=== PATIENT | female | born 1950 | race Caucasian/White ===

== ENCOUNTER 2020-05-10 12:15 | Outpatient (CLI) | payer MEDICARE, OTHER, SELFPAY ==
--- NOTE | ~2020-05-10 | XR_ITS ---
EXAMINATION: XR knee LT 3V DATE: 05/10/2020 12:47 INDICATION: Left knee pain. TECHNIQUE: 3 views of left knee were obtained. COMPARISON: Left knee radiographs 07/26/2012 FINDINGS: There is varus angulation at the knee. There is lateral subluxation of patella. No fracture . There is severe osteoarthritis of medial and patellofemoral compartments and mild osteoarthritis of lateral compartment. There is a small knee joint effusion. There is a 2.9 cm loose body in the knee joint posteriorly. IMPRESSION: 1. Severe left knee osteoarthritis. 2. Small left knee joint effusion with loose body. Reviewed, dictated and finalized at location A. [employer]
== END 2020-05-10 12:16 | disposition home or self-care (01) ==
PROVIDERS: PCP Family Medicine; Visit Provider Family Medicine
DX: M17.12 Unilateral primary osteoarthritis, left knee (principal); M23.42 Loose body in knee, left knee
CPT/HCPCS: 73562

== ENCOUNTER 2020-12-08 15:36 | Outpatient (CLI) | payer MEDICARE, SELFPAY ==
--- NOTE | ~2020-12-08 | MM_ITS ---
EXAMINATION: MM screening haylee BI w brendan HISTORY: Screening mammogram TECHNIQUE: Craniocaudal and mediolateral oblique 3-D tomosynthesis images were obtained and synthetic 2-D images were generated. CAD analysis was submitted and interpreted. COMPARISON: 08/10/2017 bilateral digital screening mammogram BREAST PARENCHYMAL COMPOSITION: There are scattered areas of fibroglandular density. FINDINGS: Scattered bilateral benign calcified microhematomas. There is no evidence of suspicious mas s, calcification, or architectural distortion to suggest malignancy in either breast. There has been no suspicious interval change. IMPRESSION: 1. No mammographic evidence of malignancy. 2. Recommend routine screening mammography in one year. BI-RADS Category 2: Benign finding(s). Reviewed, dictated and finalized at location A.
== END 2020-12-08 15:37 | disposition home or self-care (01) ==
LOC: ANHIMG 15:39
PROVIDERS: PCP Family Medicine; Visit Provider Family Medicine
DX: Z12.31 Encounter for screening mammogram for malignant neoplasm of breast (principal)
CPT/HCPCS: 77063; 77067

== ENCOUNTER 2021-04-06 00:28 | Day surgery (SDC) | payer MEDICARE, SELFPAY ==
[2021-03-29 10:50] VITALS: BMI 34.1
--- NOTE | 2021-04-05 10:24 | WPDANESEPPF ---
Anes - Initial Pre Proc Eval Procedure: Operation Date: 04/06/21 08:30 Proposed Procedures p Esophagogastroduodenoscopy & Screening Colonoscopy - Willy Bundy MD Date/Time: 04/05/21 10:24 Surgeon: Willy Bundy MD Pre Op Diagnosis: neoplasm screening, dysphagia Patient Data Age: 70 Gender: F Height: 1.55 m Weight: 82 kg Allergies Allergy/AdvReac Type Severity Reaction Status Date / Time bee pollen Allergy Mild hives and Verified 04/06/21 07:44 shortness of breath Home Medications Medication Instructions Recorded Confirmed Type duloxetine 60 mg capsule,delayed 60 mg PO DAILY #90 cap 03/08/21 03/29/21 Rx release esomeprazole magnesium 40 mg 40 mg PO DAILY #90 cap 03/08/21 03/29/21 Rx capsule,delayed release gabapentin 300 mg capsule 900 mg PO TID #270 cap 03/08/21 03/29/21 Rx losartan 50 mg tablet 50 mg PO DAILY #90 tablet 03/08/21 03/29/21 Rx rosuvastatin 5 mg tablet 5 mg PO DAILY #30 tablet 03/14/21 03/29/21 Rx sodium,potassium,mag sulfates 17.5 See Rx Instructions PO .COMPLEX 03/14/21 Rx gram-3.13 gram-1.6 gram oral soln #354 ml cephalexin 500 mg capsule 500 mg PO DAILY #90 cap 03/17/21 03/29/21 Rx warfarin 5 mg PO 2XW 03/29/21 03/29/21 History warfarin 6 mg PO 5XW 03/29/21 03/29/21 History cyclobenzaprine 5 mg tablet 5 mg PO TID PRN #90 tablet 04/02/21 Rx Patient hx anesthesia problems: none Family hx anesthesia problems: none Results Review: All pre-operative results and documents have been reviewed as part of the pre-operative evaluation. [facility] Past Medical History Medical History (Updated 04/06/21 @ 08:07 by Jamin Lindsay DO) Acute embolism and thrombosis of unspecified deep veins of left lower extremity Arthritis Bleeding nose Blood clotting disorder Cervical disc disorder with myelopathy, unspecified cervical region Chills Claustrophobia Encounter for therapeutic drug level monitoring Fever History of DVT (deep vein thrombosis) Hx of pulmonary embolus Light headedness Neuromuscular dysfunction of bladder, unspecified Other pulmonary embolism without acute cor pulmonale Pacemaker non functional Pneumonia Presence of neurostimulator Pulmonary embolism Urinary frequency Wears glasses Surgical History Surgical History History of excision of lamina of cervical vertebra for decompression of spinal cord History of hysterectomy History of permanent cardiac pacemaker placement Family History Family History Sibling Patient's sister is in good health Mother Patient's mother is Father Patient's father is Grandparent Family history of premature coronary heart disease Other Carcinoma of colon Oral-mouth cancer Social History Social History (Updated 03/08/21 @ 13:04 by Shazia Villagomez) Social History: Smoking status: Never smoker Second hand tobacco smoke exposure: No Alcohol intake: never Substance use: never Substance use type: does not use Living arrangements: with family Gender identity (if verbalized by the patient): Female Sexual Orientation (if Verbalized by the Patient): Straight or Heterosexual Spiritual care concerns: No Anes - Eval Final PreProcedure Day of Procedure 04/05/21 10:24 Patient weight: obese Heart: regular rate and rhythm Lungs: clear to auscultation and normal air movement Airway: Mallampati scale class II Neurological: alert and oriented Last oral intake: >/= 8 hours ASA classification: III Emergent: no Anesthetic plan: proceed Anesthesia type and monitoring: general GIVS and standard monitoring Results Review: All pre-operative results and documents have been reviewed as part of the pre-operative evaluation. Informed Consent: The patient's anesthetic plan and its attendant risks and benefits were discussed wi
[2021-04-06 07:48] VITALS: BP 187/92; PULSE 83; RESP 20; TEMP 37.1; O2SAT 97
[2021-04-06] MEDS: LACTATED RINGERS 1,000 ML 150 ML IV CONT (07:59)
--- NOTE | 2021-04-06 08:41 | PM.HPGS ---
History of Present Illness History of Present Illness Consent: Risks, benefits, and alternatives have been discussed and questions answered. Patient agrees to proceed with procedure. Chief complaint: neoplasm screening, dysphagia Narrative: Nena De Santiago is a 70 year old female with gerd and intermittent dysphagia on nexium, also she is due to have another colonoscopy Review of Systems Constitutional: Constitutional: Denies headache(s) and Denies weakness Eyes: Eyes: Denies blurry vision ENT: Reports Normal hearing present, Denies headache(s) and Denies neck pain Cardiovascular: Cardiovascular: Denies chest pain and Denies dyspnea Respiratory: Respiratory: Denies dyspnea Gastrointestinal: Gastrointestinal: Reports no additional gastrointestinal complaints Genitourinary: Genitourinary: Denies dysuria Musculoskeletal: Musculoskeletal: Denies neck pain Integumentary/Breasts: Skin/Breast: Denies dry skin Neurologic: Reports Normal hearing present, Denies headache(s) and Denies weakness Psychiatric: Psychiatric: Denies anxiety Endocrine: Endocrine: Denies change in body appearance Hematologic/Lymphatic: Hematologic/Lymphatic: Denies easy bleeding Allergic/Immunologic: Allergic/Immunologic: Denies urticaria PMFSH Past Medical History Medical History (Updated 04/06/21 @ 08:07 by Jamin Lindsay DO) Acute embolism and thrombosis of unspecified deep veins of left lower extremity Arthritis Bleeding nose Blood clotting disorder Cervical disc disorder with myelopathy, unspecified cervical region Chills Claustrophobia Encounter for therapeutic drug level monitoring Fever History of DVT (deep vein thrombosis) Hx of pulmonary embolus Light headedness Neuromuscular dysfunction of bladder, unspecified Other pulmonary embolism without acute cor pulmonale Pacemaker non functional Pneumonia Presence of neurostimulator Pulmonary embolism Urinary frequency Wears glasses Surgical History Surgical History History of excision of lamina of cervical vertebra for decompression of spinal cord History of hysterectomy History of permanent cardiac pacemaker placement Family History Family History Sibling Patient's sister is in good health Mother Patient's mother is Father Patient's father is Grandparent Family history of premature coronary heart disease Other Carcinoma of colon Oral-mouth cancer Social History Social History (Updated 03/08/21 @ 13:04 by Shazia Villagomez) Social History: Smoking status: Never smoker Second hand tobacco smoke exposure: No Alcohol intake: never Substance use: never Substance use type: does not use Living arrangements: with family Gender identity (if verbalized by the patient): Female Sexual Orientation (if Verbalized by the Patient): Straight or Heterosexual Spiritual care concerns: No Meds Home Medications and Allergies Home Medications Medication Instructions Recorded Confirmed Type duloxetine 60 mg capsule,delayed 60 mg PO DAILY #90 cap 03/08/21 04/06/21 Rx release esomeprazole magnesium 40 mg 40 mg PO DAILY #90 cap 03/08/21 04/06/21 Rx capsule,delayed release gabapentin 300 mg capsule 900 mg PO TID #270 cap 03/08/21 04/06/21 Rx losartan 50 mg tablet 50 mg PO DAILY #90 tablet 03/08/21 04/06/21 Rx rosuvastatin 5 mg tablet 5 mg PO DAILY #30 tablet 03/14/21 04/06/21 Rx sodium,potassium,mag sulfates 17.5 See Rx Instructions PO .COMPLEX 03/14/21 04/06/21 Rx gram-3.13 gram-1.6 gram oral soln #354 ml cephalexin 500 mg capsule 500 mg PO DAILY #90 cap 03/17/21 04/06/21 Rx warfarin 5 mg PO 2XW 03/29/21 04/06/21 History warfarin 6 mg PO 5XW 03/29/21 04/06/21 History cyclobenzaprine 5 mg tablet 5 mg PO TID PRN #90 tablet 04/02/21 04/06/21 Rx Allergies Allergy/AdvReac Type Sever
[2021-04-06 09:37] VITALS: BP 79/42; PULSE 77; RESP 22; O2SAT 97
[2021-04-06 09:47] VITALS: BP 110/67; PULSE 67; RESP 20; O2SAT 100
[2021-04-06 09:57] VITALS: BP 117/69; PULSE 70; RESP 21; O2SAT 100
== END 2021-04-06 10:17 | disposition home or self-care (01) ==
PROVIDERS: PCP Family Medicine; Visit Provider Internal Medicine Gastroenterology
PROC: 0DJ08ZZ Inspection of Upper Intestinal Tract, Via Natural or Artificial Opening Endoscopic (ICD-10-PCS; CPT 43235; principal; 2021-04-06 08:30)
DX: Z12.11 Encounter for screening for malignant neoplasm of colon (principal); K43.9 Ventral hernia without obstruction or gangrene; R13.10 Dysphagia, unspecified; K21.00 Gastro-esophageal reflux disease with esophagitis, without bleeding; K44.9 Diaphragmatic hernia without obstruction or gangrene; K29.50 Unspecified chronic gastritis without bleeding; D68.9 Coagulation defect, unspecified; Z86.718 Personal history of other venous thrombosis and embolism; Z86.711 Personal history of pulmonary embolism; Z79.01 Long term (current) use of anticoagulants; E66.9 Obesity, unspecified; Z68.34 Body mass index [BMI] 34.0-34.9, adult
CPT/HCPCS: 43239; G0121; 88305; J2704; J7120

== ENCOUNTER 2021-04-25 08:19 | Outpatient (CLI) | payer MEDICARE, SELFPAY ==
--- NOTE | ~2021-04-25 | XR_ITS ---
EXAMINATION: XR abdomen/kub 1V INDICATION: Incomplete colonoscopy TECHNIQUE: Supine view of the abdomen is obtained. COMPARISON: None FINDINGS: Gaseous distention of the colon likely relates to incomplete colonoscopy. No free intraperi toneal gas is identified. A neurostimulator device lead enters the right pelvis. IMPRESSION: 1. Gaseous distention of the colon, likely due to incomplete colonoscopy. Reviewed, dictated and finalized at location B. NG SECRETARY
== END 2021-04-25 08:20 | disposition home or self-care (01) ==
LOC: ANHIMG 08:23
PROVIDERS: PCP Family Medicine; Visit Provider Internal Medicine Gastroenterology
DX: Z12.11 Encounter for screening for malignant neoplasm of colon (principal); K63.89 Other specified diseases of intestine
CPT/HCPCS: 74018

== ENCOUNTER 2021-04-26 09:27 | Outpatient (CLI) | payer MEDICARE, SELFPAY ==
--- NOTE | ~2021-04-26 | XR_ITS ---
BARIUM ENEMA-AIR CONTRAST INDICATION: Encounter for screening of malignant neoplasm TECHNIQUE: Examination of the colon utilizing air-contrast barium enema technique. COMPARISON: KUB dated 04/25/2021 FINDINGS: The colon was filled, distending normally. The colon is redundant. There is a large amount of gas within the proximal colon limiting evaluation of the proximal colon with barium. No extrinsic mass effect is noted. The haustral pattern appears normal. There is no evidence of polyp, stricture , extravasation, obstruction or persistent mucosal abnormality. IMPRESSION: 1:Unremarkable colon. Limited evaluation of the proximal colon. Reviewed, dictated and finalized at location A. ER PUNCH
== END 2021-04-26 09:28 | disposition home or self-care (01) ==
PROVIDERS: PCP Family Medicine; Visit Provider Internal Medicine Gastroenterology
DX: Z12.11 Encounter for screening for malignant neoplasm of colon (principal)
CPT/HCPCS: 74280

== ENCOUNTER → 2021-07-28 11:15 | Outpatient (CLI) | payer MEDICARE, SELFPAY ==
--- NOTE | ~2021-07-28 | CT_ITS ---
EXAMINATION: CT abdomen wo con DATE: 07/28/2021 11:29 INDICATION: Umbilical hernia without obstruction or gangrene TECHNIQUE: Computed tomography (CT) of the abdomen was performed without intravenous contrast. Automa holly exposure control and iterative reconstruction technique were employed. Exam dose: 602.27 mGy-cm total exam DLP. COMPARISON: None. FINDINGS: There is mild discoid atelectasis or more likely scarring in the posterior basilar right lo wer lobe. The lung bases are clear of infiltrate or consolidation. Normal heart size. Right atrial an d right ventricular pacemaker leads are noted. No pericardial or pleural effusion. Small sliding hiatal hernia. The liver, gallbladder, bile ducts, spleen, pancreas, pancreatic duct, and adrenal glands and kidneys are unremarkable. No renal calculus or hydronephrosis. Normal caliber of the abdominal aorta. No intraperitoneal or retroperitoneal mass lesion or adenopath y or ascites. Fat-containing umbilical hernia measures up to 1.9 cm maximal width, approximately 2.7 cm maximal dep th. Bilateral elongated attenuated L5 pars interarticularis with grade 2 anterolisthesis and severe degen erative disc disease/fusion at L5-S1. There is prominent degenerative change at the apophyseal joints at L4-5 with associated grade 1 anter olisthesis. There is moderately prominent degenerative disease at the L1-2 through L4-5 interspaces and degenerat albin change in the lower thoracic spine. IMPRESSION: Fat-containing umbilical hernia Small sliding hiatal hernia Reviewed, dictated and finalized at Location A. Reviewed, dictated and finalized at location A. OM PROTECTION OFFICER
== END ==
PROVIDERS: PCP Family Medicine; Visit Provider Surgery
DX: K42.9 Umbilical hernia without obstruction or gangrene (principal); K44.9 Diaphragmatic hernia without obstruction or gangrene
CPT/HCPCS: 74150

== ENCOUNTER 2022-07-14 15:40 | Outpatient (CLI) | payer MEDICARE, SELFPAY ==
--- NOTE | ~2022-07-14 | XR_ITS ---
EXAMINATION: XR abdomen obstructive series DATE: 07/14/2022 16:21 INDICATION: Abdominal distention TECHNIQUE: Frontal supine and upright views of the abdomen were obtained. COMPARISON: CT dated 07/28/2021 FINDINGS: Moderate to large amount of gas and stool scattered throughout the colon. No dilated loops of gas-delmi led small bowel to suggest obstruction. No free intraperitoneal gas. Lung bases are clear. Heart si ze normal. Dual lead pacemaker seen with leads projecting over the expected locations of the right at rium and right ventricle. Right sacral nerve root stimulator projects over expected position. Mild familia mbar levocurvature with severe spondylosis. IMPRESSION: 1. No free intraperitoneal gas or dilated gas-filled loops of bowel to suggest obstruction. Reviewed, dictated and finalized at location B. ISSIONER OF INTERNAL REVENUE
== END 2022-07-14 15:41 | disposition home or self-care (01) ==
PROVIDERS: PCP Family Medicine; Visit Provider Family Medicine
DX: R14.0 Abdominal distension (gaseous) (principal)
CPT/HCPCS: 74019